=== PATIENT | male | born 1950 | race African-American/Black ===

== ENCOUNTER 2016-11-21 13:46 | Inpatient (IN) | payer BC ==
[2016-11-21 16:41] VITALS: BMI 36.2
--- NOTE | 2016-11-21 17:01 | HP ---
COWS - Scale Resting Pulse: 0= [place] 80 or Below Sweatin=Flushed/Facial Moisture Restless Observation: 1= Difficult to Sit Still Pupil Size: 2= Moderately Dilated Bone or Joint Aches: 2= Severe Diffuse Aches Runny Nose/ Eye Tearin= Runny Nose/Eyes GI Upset > 30mins: 2= Nausea/Diarrhea Tremor Observation: 2= Slight Tremor Visible Yawning Observation: 1= 1-2x During Session Anxiety or Irritability: 2=Irritable/Anxious Goose Flesh Skin: 0=Smooth Skin COWS Score: 16 Admission ROS S - [facility] Chief Complaint: Withdrawal sx. Allergies/Adverse Reactions: Allergies Allergy/AdvReac Type Severity Reaction Status Date / Time No Known Allergies Allergy Verified 11/21/16 16:17 History of Present Illness: 66 y/o man with a long hx. of heroin dependence is admitted for detox. Pt. has been in previous detox, reports 5 yrs. drug free on two different occasion. Exam Limitations: No Limitations - Ebola screening Have you traveled outside of the country in the last 21 days: No (N) Have you had contact with anyone from an Ebola affected area: No Have you been sick,other than usual withdrawal symptoms: No Do you have a fever: No - Review of Systems Constitutional: Diaphoresis EENT: reports: Nose Congestion Respiratory: reports: No Symptoms reported Cardiac: reports: No Symptoms Reported GI: reports: Nausea, Abdominal cramping : reports: No Symptoms Reported Musculoskeletal: reports: No Symptoms Reported Integumentary: reports: Sweating Neuro: reports: Tingling, Tremors, Other (one blackout in 1995) Endocrine: reports: Increased Hunger, Increased Thirst, Increased Urine Hematology: reports: No Symptoms Reported Psychiatric: reports: No Sypmtoms Reported Other Systems: Reviewed and Negative Patient History - Patient Medical History Hx Anemia: No Hx Asthma: No Hx Chronic Obstructive Pulmonary Disease (COPD): No Hx Cancer: No Hx Cardiac Disorders: No Hx Congestive Heart Failure: No Hx Hypertension: Yes (on meds) Hx Hypercholesterolemia: Yes Hx Pacemaker: No HX Cerebrovascular Accident: No Hx Seizures: No Hx Dementia: No Hx Diabetes: Yes (Type II) Hx Gastrointestinal Disorders: Yes (GERD) Hx Liver Disease: No Hx Genitourinary Disorders: No Hx Sexually Transmitted Disorders: No Hx Renal Disease (ESRD): No Hx Thyroid Disease: No Hx Human Immunodeficiency Virus (HIV): No Hx Hepatitis C: No Hx Depression: Yes Hx Suicide Attempt: No Hx Bipolar Disorder: No Hx Schizophrenia: No - Patient Surgical History Past Surgical History: Yes Hx Cholecystectomy: Yes (2004) Hx Orthopedic Surgery: Yes (multiple sx both wrist) Anesthesia Reaction: No - PPD History Previous Implant?: No Documented Results: Positive w/o proof PPD to be Administered?: No - Smoking Cessation Smoking history: Current every day smoker Have you smoked in the past 12 months: Yes Aproximately how many cigarettes per day: 4 Hx Chewing Tobacco Use: No Initiated information on smoking cessation: Yes 'Breaking Loose' booklet given: 11/21/16 - Substance & Tx. History Hx Alcohol Use: Yes (occasional) Hx Substance Use: Yes Substance Use Type: Heroin Hx Substance Use Treatment: Yes (detox,iop) - Substances Abused Heroin Route: Inhalation Frequency: Daily Amount used: 4 BAGS Age of first use: 21 Date of Last Use: 11/21/16 Family Disease History - Family Disease History Family Disease History: Diabetes: Mother (HTN), Heart Disease: Mother Admission Physical Exam [facility] - Vital Signs Vital Signs: Vital Signs - 24 hr 11/21/16 16:37 Temperature 97.0 F L Pulse Rate 73 Respiratory 20 Rate Blood Pressure 117/79 - Physical General Appearance: Yes: Irritable, Sweating, Anxious HEENTM: Yes: Nasal Congestion, Rhinorrhea Respiratory: Yes: Chest Non-Tender, Lungs Clear, Normal Breath Sounds Neck: Yes: Supple Breast: Yes: Breast Exam Deferred Cardiology: Yes: Regular Rhythm, Regular Rate, S1, S2 Abdominal: Yes: Normal Bowel Sounds, Non Tender, Soft Genitourinary: Yes: Within Normal Limits Back: Yes: Within Normal Limits Musculoskeletal: Yes: Within Normal Limits Extremities: Yes: Within Normal Limits Neurological: Yes: Fully Oriented, Alert Integumentary: Yes: Diaphoresis Lymphatic: Yes: Within Normal Limits - Diagnostic (1) Opioid dependence with withdrawal Current Visit: Yes Status: Acute (2) Type II diabetes mellitus Current Visit: Yes Status: Acute Qualifiers: Diabetes mellitus complication status: without complication Diabetes mellitus assisted insulin use: without assisted use Qualified Code(s): E11.9 - Type 2 diabetes mellitus without complications (3) HTN (hypertension) Current Visit: Yes Status: Acute Qualifiers: Hypertension type: essential hypertension Qualified Code(s): I10 - Essential (primary) hypertension (4) GERD (gastroesophageal reflux disease) Current Visit: Yes Status: Acute (5) Obesities, morbid Current Visit: Yes Status: Acute Qualifiers: Obesity type: due to excess calories Qualified Code(s): E66.01 - Morbid (severe) obesity due to excess calories Cleared for Admission S - Detox or Rehab [facility] Level of Care: Medically Managed Detox Regimen/Protocol: Methadone S Breath Alcohol Content Breath Alcohol Content: 0 Urine Drug Screen - Results Drug Screen Negative: No Urine Drug Screen Results: OPI-Opiates
[2016-11-21] MEDS ORDERED: ACETAMINOPHEN 325 MG TABLET (FP) PO PRN (17:11)
[2016-11-21] MEDS ORDERED: MENTHOL/PHENOL 1 EACH UD MM PRN (17:11)
[2016-11-21] MEDS ORDERED: IBUPROFEN 400 MG TABLET (FP) PO PRN (17:11)
[2016-11-21] MEDS ORDERED: NICOTINE POLACRILEX 2 MG GUM BC PRN (17:11)
[2016-11-21] MEDS ORDERED: MAGNESIUM CITRATE 300 ML BOTTLE PO PRN (17:11)
[2016-11-21] MEDS ORDERED: guaiFENesin/D-METHORPHAN HB 10 ML UNIT-DOSE CUPS PO PRN (17:11)
[2016-11-21] MEDS ORDERED: hydrOXYzine PAMOATE 50 MG CAPSULE (FP) PO PRN (17:11)
[2016-11-21] MEDS ORDERED: MAGNESIUM HYDROX 2400MG/30ML ORAL SUSPENSION 30 ML CUP PO PRN (17:11)
[2016-11-21] MEDS ORDERED: MAG HYDROX/AL HYDROX/SIMETH 30 ML UNIT-DOSE CUP PO PRN (17:11)
[2016-11-21] MEDS ORDERED: LOPERAMIDE HCL 2 MG CAPSULE PO PRN (17:11)
[2016-11-21] MEDS ORDERED: METHADONE HCL 10 MG TABLET (FOR DETOX USE ONLY) PO ONE ×2 (18:30→23:00)
[2016-11-21] MEDS: diazePAM 5 MG TABLET PO PRN (18:38)
[2016-11-21] MEDS: NICOTINE 7 MG/24 HOURS TOPICAL PATCH TD SCH (18:50)
[2016-11-21] MEDS ORDERED: INSULIN DETEMIR 100 UNITS/ML MDV SQ SCH (22:00)
[2016-11-21] MEDS: THIAMINE HCL 100 MG TABLET (FP) PO SCH (22:24)
[2016-11-21 23:10] LABS: URINE APPEARANCE CLEAR; URINE BILIRUBIN NEGATIVE (NEGATIVE); URINE BLOOD NEGATIVE (NEGATIVE); URINE COLOR LT. YELLOW; URINE GLUCOSE (UA) NEGATIVE (NEGATIVE); URINE KETONE NEGATIVE (NEGATIVE); URINE LEUK ESTERASE NEGATIVE (NEGATIVE); URINE NITRITE NEGATIVE (NEGATIVE); URINE PROTEIN NEGATIVE (NEGATIVE); URINE UROBILINOGEN 0.2 E.U/dl E.U./dl (0.2-1.0)
[2016-11-22] MEDS: diazePAM 5 MG TABLET PO PRN ×3 (05:55→22:22)
--- NOTE | 2016-11-22 08:58 | CONSULT ---
[facility] Psychiatric Consult - Data Date of interview: 11/22/16 Admission source: [facility] Identifying data: This is 66 years old male with psychiatric hospitalization history intoxicated with : Opioids Substance Abuse History: - Smoking Cessation. Smoking history: Current every day smoker. Have you smoked in the past 12 months: Yes. Aproximately how many cigarettes per day: 4. Hx Chewing Tobacco Use: No. Initiated information on smoking cessation: Yes. 'Breaking Loose' booklet given: 11/21/16. - Substance & Tx. History. Hx Alcohol Use: Yes (occasional). Hx Substance Use: Yes. Substance Use Type: Heroin. Hx Substance Use Treatment: Yes (detox,iop). - Substances Abused. Heroin. Route: Inhalation. Frequency: Daily. Amount used: 4 BAGS. Age of first use: 21. Date of Last Use: 11/21/16 Medical History: GERD, HTN, Obesity motbid, DM Psychiatric History: Patient reports unclear psychiatric admission on 2014 at [facility] due to depressd mood for safety, denies suicidal history, reports no psychiatric medications taking prior to admission Physical/Sexual Abuse/Trauma History: Denies Additional Comment: Observation. Detox Unit Care Protocol Mental Status Exam - Mental Status Exam Alert and Oriented to: Person Cognitive Function: Fair Patient Appearance: Well Groomed Mood: Sad Affect: Mood Congruent Patient Behavior: Cooperative Speech Pattern: Appropriate Voice Loudness: Normal Thought Process: Goal Oriented Thought Disorder: Being Controlled Hallucinations: Denies Suicidal Ideation: Denies Homicidal Ideation: Denies Insight/Judgement: Fair Sleep: Difficulty falling asleep Appetite: Weight loss Muscle strength/Tone: Mild Hypotonicity Gait/Station: Shuffling Additional Comments: Observation. Detox Unit Care Protocol Psychiatric Findings - Problem List ([place] 1, 2,3) (1) Obesities, morbid Current Visit: Yes Status: Acute Qualifiers: Obesity type: due to excess calories Qualified Code(s): E66.01 - Morbid (severe) obesity due to excess calories (2) Opioid dependence with withdrawal Current Visit: Yes Status: Acute (3) Opioid-induced mood disorder Current Visit: Yes Status: Acute (4) Opioid-induced sleep disorder, insomnia type, with onset during discontinuation/withdrawal Current Visit: Yes Status: Acute - Initial Treatment Plan Initial Treatment Plan: Observation. Detox Unit Care Protocol
[2016-11-22] MEDS ORDERED: METHADONE HCL 10 MG TABLET (FOR DETOX USE ONLY) PO ONE (10:00)
[2016-11-22 10:08] LABS: MCH 29.3 pg (25.7-33.7); MCHC 33.9 g/dl (32.0-35.9); MEAN CELL VOLUME 86.3 fl (80-96); MEAN PLT VOLUME 9.5 fl (7.5-11.1); PLATELET COUNT 210 K/MM3 (134-434); WHITE BLOOD COUNT 5.8 K/mm3 (4.0-10.0)
[2016-11-22] MEDS: METFORMIN HCL PO SCH (10:09)
[2016-11-22] MEDS: SAXAGLIPTIN HCL PO SCH (10:09)
[2016-11-22] MEDS: VALSARTAN PO SCH (10:09)
[2016-11-22] MEDS: AMLODIPINE PO SCH (10:09)
[2016-11-22] MEDS: [UNRECOGNIZED DRUG - OTHER] PO SCH (10:09)
[2016-11-22] MEDS: PRENATAL VITAMINS W/ FOLIC ACID TABLET (FP) PO SCH (10:09)
[2016-11-22] MEDS: [UNRECOGNIZED DRUG - OTHER] PO SCH (10:09)
[2016-11-22] MEDS: PATIENT'S OWN MEDICATION (NON-FORMULARY) (Omeprazole/Sodium Bicarbonate [Omeprazole-Bicarb PO SCH (10:09)
[2016-11-22] MEDS: NICOTINE 7 MG/24 HOURS TOPICAL PATCH TD SCH (10:10)
[2016-11-22 10:48] LABS: ALK PHOS 93 U/L (45-117); ANION GAP 8 (8-16); BILIRUBIN,TOTAL 0.5 mg/dL (0.2-1.0); CALCIUM 8.9 mg/dL (8.5-10.1); CO2 26 mmol/L (21-32); CREATININE 1.1 mg/dL (0.7-1.3); GLUCOSE,RANDOM 98 mg/dL (74-106); SGOT/AST 15 U/L (15-37); SGPT/ALT 22 U/L (12-78); TOT PROT 7.1 g/dl (6.4-8.2)
--- NOTE | 2016-11-22 12:01 | PN ---
BHS COWS - Scale Resting Pulse: 0= [place] 80 or Below Sweatin= Chills/Flushing Restless Observation: 3= Extraneous Movement Pupil Size: 2= Moderately Dilated Bone or Joint Aches: 4=Acute Joint/Muscle Pain Runny Nose/ Eye Tearin= Nasal Congestion GI Upset > 30mins: 1= Stomach Cramp Tremor Observation of Outstretched Hands: 1= Tremor [place], Not Seen Yawning Observation: 2= >3x During Session Anxiety or Irritability: 2=Irritable/Anxious Goose Flesh Skin: 0=Smooth Skin COWS Score: 17 BHS Progress Note (SOAP) Subjective: ANXIETY,SWEATS,BODY ACHES, INTERMITTENT SLEEP. Objective: 11/22/16 12:01 Vital Signs Temperature 98.4 F 11/22/16 09:47 Pulse Rate 67 11/22/16 09:47 Respiratory Rate 20 11/22/16 09:47 Blood Pressure 131/83 11/22/16 09:47 O2 Sat by Pulse Oximetry (%) Laboratory Last Values WBC 5.8 K/mm3 (4.0-10.0) 11/22/16 06:00 RBC 4.21 M/mm3 (4.00-5.60) 11/22/16 06:00 Hgb 12.3 GM/dL (11.7-16.9) 11/22/16 06:00 Hct 36.3 % (35.4-49) 11/22/16 06:00 MCV 86.3 fl (80-96) 11/22/16 06:00 MCHC 33.9 g/dl (32.0-35.9) 11/22/16 06:00 RDW 14.0 % (11.9-15.9) 11/22/16 06:00 Plt Count 210 K/MM3 (134-434) 11/22/16 06:00 MPV 9.5 fl (7.5-11.1) 11/22/16 06:00 Sodium 143 mmol/L (136-145) 11/22/16 06:00 Potassium 4.4 mmol/L (3.5-5.1) 11/22/16 06:00 Chloride 109 mmol/L (98-107) H 11/22/16 06:00 Carbon Dioxide 26 mmol/L (21-32) 11/22/16 06:00 Anion Gap 8 (8-16) 11/22/16 06:00 BUN 10 mg/dL (7-18) 11/22/16 06:00 Creatinine 1.1 mg/dL (0.7-1.3) 11/22/16 06:00 Creat Clearance w eGFR > 60 (>60) 11/22/16 06:00 POC Glucometer 99 UNITS (()) 11/22/16 05:37 Random Glucose 98 mg/dL (74-106) 11/22/16 06:00 Calcium 8.9 mg/dL (8.5-10.1) 11/22/16 06:00 Total Bilirubin 0.5 mg/dL (0.2-1.0) 11/22/16 06:00 AST 15 U/L (15-37) 11/22/16 06:00 ALT 22 U/L (12-78) 11/22/16 06:00 Alkaline Phosphatase 93 U/L (45-117) 11/22/16 06:00 Total Protein 7.1 g/dl (6.4-8.2) 11/22/16 06:00 Albumin 4.0 g/dl (3.4-5.0) 11/22/16 06:00 Urine Color Lt. yellow 11/21/16 22:05 Urine Appearance Clear 11/21/16 22:05 Urine pH 7.0 (5.0-8.0) 11/21/16 22:05 Ur Specific [place] 1.010 (1.001-1.035) 11/21/16 22:05 Urine Protein Negative (NEGATIVE) 11/21/16 22:05 Urine Glucose (UA) Negative (NEGATIVE) 11/21/16 22:05 Urine Ketones Negative (NEGATIVE) 11/21/16 22:05 Urine Blood Negative (NEGATIVE) 11/21/16 22:05 Urine Nitrite Negative (NEGATIVE) 11/21/16 22:05 Urine Bilirubin Negative (NEGATIVE) 11/21/16 22:05 Urine Urobilinogen 0.2 e.u/dl E.U./dl (0.2-1.0) 11/21/16 22:05 Ur Leukocyte Esterase Negative (NEGATIVE) 11/21/16 22:05 Assessment: 11/22/16 12:01 WITHDRAWAL SX Plan: CONTINUE DETOX
--- NOTE | 2016-11-22 16:19 | EKG ---
Test Reason : Blood Pressure : / mmHG Vent. Rate : 062 BPM Atrial Rate : 062 BPM P-R Int : 168 ms QRS Dur : 078 ms QT Int : 334 ms P-R-T Axes : 037 028 033 degrees QTc Int : 339 ms NORMAL SINUS RHYTHM NONSPECIFIC T WAVE ABNORMALITY ABNORMAL ECG NO PREVIOUS ECGS AVAILABLE Confirmed by SIRENA COLON, HUANG ([id number]) on 11/22/2016 4:18:51 PM Referred By: Tyson Short Confirmed By:HUANG PACK MD
[2016-11-22] MEDS: INSULIN DETEMIR 100 UNITS/ML MDV SQ SCH (17:07)
[2016-11-22] MEDS: THIAMINE HCL 100 MG TABLET (FP) PO SCH (22:22)
[2016-11-23] MEDS: diazePAM 5 MG TABLET PO PRN ×2 (05:35→22:23)
[2016-11-23] MEDS: P-EPHED 60MG/TRIPROLIDI 2.5MG TABLET PO PRN ×2 (05:36→22:23)
[2016-11-23] MEDS: [UNRECOGNIZED DRUG - OTHER] PO SCH (06:35)
[2016-11-23] MEDS: SAXAGLIPTIN HCL PO SCH (06:35)
[2016-11-23] MEDS: METFORMIN HCL PO SCH (06:35)
[2016-11-23] MEDS ORDERED: METHADONE HCL 5 MG TABLET (FOR DETOX USE ONLY) PO ONE (10:00)
[2016-11-23] MEDS: PRENATAL VITAMINS W/ FOLIC ACID TABLET (FP) PO SCH (10:14)
[2016-11-23] MEDS: NICOTINE 7 MG/24 HOURS TOPICAL PATCH TD SCH (10:15)
[2016-11-23] MEDS: PATIENT'S OWN MEDICATION (NON-FORMULARY) (Omeprazole/Sodium Bicarbonate [Omeprazole-Bicarb PO SCH (10:15)
[2016-11-23] MEDS: [UNRECOGNIZED DRUG - OTHER] PO SCH (10:16)
[2016-11-23] MEDS: AMLODIPINE PO SCH (10:16)
[2016-11-23] MEDS: VALSARTAN PO SCH (10:16)
--- NOTE | 2016-11-23 10:59 | PN ---
BHS COWS - Scale Resting Pulse: 0= [place] 80 or Below Sweatin=Flushed/Facial Moisture Restless Observation: 1= Difficult to Sit Still Pupil Size: 0= Normal to Room Light Bone or Joint Aches: 2= Severe Diffuse Aches Runny Nose/ Eye Tearin= Runny Nose/Eyes GI Upset > 30mins: 2= Nausea/Diarrhea Tremor Observation of Outstretched Hands: 2= Slight Tremor Visible Yawning Observation: 1= 1-2x During Session Anxiety or Irritability: 2=Irritable/Anxious Goose Flesh Skin: 0=Smooth Skin COWS Score: 14 S Progress Note (SOAP) Subjective: Sweating,interrupted sleep,anxiety,tremors Objective: 11/23/16 10:58 Vital Signs - 8 hr 11/23/16 11/23/16 11/23/16 03:32 06:24 09:32 Temperature 97.4 F L 98.0 F Pulse Rate 63 75 Respiratory 18 18 18 Rate Blood Pressure 137/83 134/86 Laboratory Tests 11/21/16 11/21/16 11/21/16 16:32 21:13 22:05 WBC RBC Hgb Hct MCV MCHC RDW Plt Count MPV Sodium Potassium Chloride Carbon Dioxide Anion Gap BUN Creatinine Creat Clearance w eGFR POC Glucometer 147 116 Random Glucose Calcium Total Bilirubin AST ALT Alkaline Phosphatase Total Protein Albumin Urine Color Lt. yellow Urine Appearance Clear Urine pH 7.0 Ur Specific [place] 1.010 Urine Protein Negative Urine Glucose (UA) Negative Urine Ketones Negative Urine Blood Negative Urine Nitrite Negative Urine Bilirubin Negative Urine Urobilinogen 0.2 e.u/dl Ur Leukocyte Esterase Negative RPR Titer 11/22/16 11/22/16 11/22/16 05:37 06:00 06:00 WBC 5.8 RBC 4.21 Hgb 12.3 Hct 36.3 MCV 86.3 MCHC 33.9 RDW 14.0 Plt Count 210 MPV 9.5 Sodium 143 Potassium 4.4 Chloride 109 H Carbon Dioxide 26 Anion Gap 8 BUN 10 Creatinine 1.1 Creat Clearance w eGFR > 60 POC Glucometer 99 Random Glucose 98 Calcium 8.9 Total Bilirubin 0.5 AST 15 ALT 22 Alkaline Phosphatase 93 Total Protein 7.1 Albumin 4.0 Urine Color Urine Appearance Urine pH Ur Specific [place] Urine Protein Urine Glucose (UA) Urine Ketones Urine Blood Urine Nitrite Urine Bilirubin Urine Urobilinogen Ur Leukocyte Esterase RPR Titer 11/22/16 11/22/16 11/23/16 06:00 16:13 05:37 WBC RBC Hgb Hct MCV MCHC RDW Plt Count MPV Sodium Potassium Chloride Carbon Dioxide Anion Gap BUN Creatinine Creat Clearance w eGFR POC Glucometer 98 100 Random Glucose Calcium Total Bilirubin AST ALT Alkaline Phosphatase Total Protein Albumin Urine Color Urine Appearance Urine pH Ur Specific [place] Urine Protein Urine Glucose (UA) Urine Ketones Urine Blood Urine Nitrite Urine Bilirubin Urine Urobilinogen Ur Leukocyte Esterase RPR Titer Nonreactive labs noted Assessment: 11/23/16 10:58 withdrawal sx. Plan: Continue detox
[2016-11-23] MEDS ORDERED: INSULIN DETEMIR 100 UNITS/ML MDV SQ ONE (16:42)
[2016-11-23] MEDS: INSULIN DETEMIR 100 UNITS/ML MDV SQ SCH (16:47)
[2016-11-23] MEDS: THIAMINE HCL 100 MG TABLET (FP) PO SCH (22:24)
[2016-11-24] MEDS: diazePAM 5 MG TABLET PO PRN ×2 (05:08→10:27)
[2016-11-24] MEDS: [UNRECOGNIZED DRUG - OTHER] PO SCH (06:18)
[2016-11-24] MEDS: SAXAGLIPTIN HCL PO SCH (06:18)
[2016-11-24] MEDS: METFORMIN HCL PO SCH (06:18)
[2016-11-24] MEDS ORDERED: METHADONE HCL 5 MG TABLET (FOR DETOX USE ONLY) PO ONE (10:00)
[2016-11-24] MEDS: [UNRECOGNIZED DRUG - OTHER] PO SCH (10:23)
[2016-11-24] MEDS: VALSARTAN PO SCH (10:23)
[2016-11-24] MEDS: AMLODIPINE PO SCH (10:23)
[2016-11-24] MEDS: PATIENT'S OWN MEDICATION (NON-FORMULARY) (Omeprazole/Sodium Bicarbonate [Omeprazole-Bicarb PO SCH (10:24)
[2016-11-24] MEDS: NICOTINE 7 MG/24 HOURS TOPICAL PATCH TD SCH (10:25)
[2016-11-24] MEDS: PRENATAL VITAMINS W/ FOLIC ACID TABLET (FP) PO SCH (10:25)
--- NOTE | 2016-11-24 14:28 | PN ---
BHS Progress Note (SOAP) Subjective: Sweating, Body aches, Interrupted sleep, Back Ache. Objective: PT. A & O X 3, OBSERVED AMBULATING ON UNIT. 11/24/16 14:26 Vital Signs Temperature 96.4 F L 11/24/16 14:20 Pulse Rate 65 11/24/16 14:20 Respiratory Rate 20 11/24/16 14:20 Blood Pressure 124/87 11/24/16 14:20 O2 Sat by Pulse Oximetry (%) Laboratory Last Values WBC 5.8 K/mm3 (4.0-10.0) 11/22/16 06:00 RBC 4.21 M/mm3 (4.00-5.60) 11/22/16 06:00 Hgb 12.3 GM/dL (11.7-16.9) 11/22/16 06:00 Hct 36.3 % (35.4-49) 11/22/16 06:00 MCV 86.3 fl (80-96) 11/22/16 06:00 MCHC 33.9 g/dl (32.0-35.9) 11/22/16 06:00 RDW 14.0 % (11.9-15.9) 11/22/16 06:00 Plt Count 210 K/MM3 (134-434) 11/22/16 06:00 MPV 9.5 fl (7.5-11.1) 11/22/16 06:00 Sodium 143 mmol/L (136-145) 11/22/16 06:00 Potassium 4.4 mmol/L (3.5-5.1) 11/22/16 06:00 Chloride 109 mmol/L (98-107) H 11/22/16 06:00 Carbon Dioxide 26 mmol/L (21-32) 11/22/16 06:00 Anion Gap 8 (8-16) 11/22/16 06:00 BUN 10 mg/dL (7-18) 11/22/16 06:00 Creatinine 1.1 mg/dL (0.7-1.3) 11/22/16 06:00 Creat Clearance w eGFR > 60 (>60) 11/22/16 06:00 POC Glucometer 115 UNITS (()) 11/24/16 05:07 Random Glucose 98 mg/dL (74-106) 11/22/16 06:00 Calcium 8.9 mg/dL (8.5-10.1) 11/22/16 06:00 Total Bilirubin 0.5 mg/dL (0.2-1.0) 11/22/16 06:00 AST 15 U/L (15-37) 11/22/16 06:00 ALT 22 U/L (12-78) 11/22/16 06:00 Alkaline Phosphatase 93 U/L (45-117) 11/22/16 06:00 Total Protein 7.1 g/dl (6.4-8.2) 11/22/16 06:00 Albumin 4.0 g/dl (3.4-5.0) 11/22/16 06:00 Urine Color Lt. yellow 11/21/16 22:05 Urine Appearance Clear 11/21/16 22:05 Urine pH 7.0 (5.0-8.0) 11/21/16 22:05 Ur Specific [place] 1.010 (1.001-1.035) 11/21/16 22:05 Urine Protein Negative (NEGATIVE) 11/21/16 22:05 Urine Glucose (UA) Negative (NEGATIVE) 11/21/16 22:05 Urine Ketones Negative (NEGATIVE) 11/21/16 22:05 Urine Blood Negative (NEGATIVE) 11/21/16 22:05 Urine Nitrite Negative (NEGATIVE) 11/21/16 22:05 Urine Bilirubin Negative (NEGATIVE) 11/21/16 22:05 Urine Urobilinogen 0.2 e.u/dl E.U./dl (0.2-1.0) 11/21/16 22:05 Ur Leukocyte Esterase Negative (NEGATIVE) 11/21/16 22:05 RPR Titer Nonreactive (NONREACTIVE) 11/22/16 06:00 LABS NOTED. Assessment: 11/24/16 14:27 WITHDRAWAL SYMPTOMS. Plan: CONTINUE DETOX. ADVISED PATIENT TO FOLLOW-UP WITH [facility] / REHAB MEDICAL PROVIDER AFTER DISCHARGE FROM DETOX FOR GENERAL MEDICAL ASSESSMENT.
[2016-11-24] MEDS: INSULIN DETEMIR 100 UNITS/ML MDV SQ SCH (17:12)
[2016-11-24] MEDS: THIAMINE HCL 100 MG TABLET (FP) PO SCH (22:33)
[2016-11-24] MEDS: diphenhydrAMINE HCL 50 MG CAPSULE PO PRN (22:33)
[2016-11-25] MEDS: METFORMIN HCL PO SCH (06:21)
[2016-11-25] MEDS: SAXAGLIPTIN HCL PO SCH (06:21)
[2016-11-25] MEDS: [UNRECOGNIZED DRUG - OTHER] PO SCH (06:21)
--- NOTE | 2016-11-25 08:52 | PN ---
BHS Progress Note (SOAP) Subjective: Sweating,interrupted sleep,restless Objective: 11/25/16 08:51 Vital Signs - 8 hr 11/25/16 06:19 Temperature 97.1 F L Pulse Rate 66 Respiratory 16 Rate Blood Pressure 116/83 Laboratory Last Values WBC 5.8 K/mm3 (4.0-10.0) 11/22/16 06:00 RBC 4.21 M/mm3 (4.00-5.60) 11/22/16 06:00 Hgb 12.3 GM/dL (11.7-16.9) 11/22/16 06:00 Hct 36.3 % (35.4-49) 11/22/16 06:00 MCV 86.3 fl (80-96) 11/22/16 06:00 MCHC 33.9 g/dl (32.0-35.9) 11/22/16 06:00 RDW 14.0 % (11.9-15.9) 11/22/16 06:00 Plt Count 210 K/MM3 (134-434) 11/22/16 06:00 MPV 9.5 fl (7.5-11.1) 11/22/16 06:00 Sodium 143 mmol/L (136-145) 11/22/16 06:00 Potassium 4.4 mmol/L (3.5-5.1) 11/22/16 06:00 Chloride 109 mmol/L (98-107) H 11/22/16 06:00 Carbon Dioxide 26 mmol/L (21-32) 11/22/16 06:00 Anion Gap 8 (8-16) 11/22/16 06:00 BUN 10 mg/dL (7-18) 11/22/16 06:00 Creatinine 1.1 mg/dL (0.7-1.3) 11/22/16 06:00 Creat Clearance w eGFR > 60 (>60) 11/22/16 06:00 POC Glucometer 92 UNITS (()) 11/25/16 05:12 Random Glucose 98 mg/dL (74-106) 11/22/16 06:00 Calcium 8.9 mg/dL (8.5-10.1) 11/22/16 06:00 Total Bilirubin 0.5 mg/dL (0.2-1.0) 11/22/16 06:00 AST 15 U/L (15-37) 11/22/16 06:00 ALT 22 U/L (12-78) 11/22/16 06:00 Alkaline Phosphatase 93 U/L (45-117) 11/22/16 06:00 Total Protein 7.1 g/dl (6.4-8.2) 11/22/16 06:00 Albumin 4.0 g/dl (3.4-5.0) 11/22/16 06:00 Urine Color Lt. yellow 11/21/16 22:05 Urine Appearance Clear 11/21/16 22:05 Urine pH 7.0 (5.0-8.0) 11/21/16 22:05 Ur Specific [place] 1.010 (1.001-1.035) 11/21/16 22:05 Urine Protein Negative (NEGATIVE) 11/21/16 22:05 Urine Glucose (UA) Negative (NEGATIVE) 11/21/16 22:05 Urine Ketones Negative (NEGATIVE) 11/21/16 22:05 Urine Blood Negative (NEGATIVE) 11/21/16 22:05 Urine Nitrite Negative (NEGATIVE) 11/21/16 22:05 Urine Bilirubin Negative (NEGATIVE) 11/21/16 22:05 Urine Urobilinogen 0.2 e.u/dl E.U./dl (0.2-1.0) 11/21/16 22:05 Ur Leukocyte Esterase Negative (NEGATIVE) 11/21/16 22:05 RPR Titer Nonreactive (NONREACTIVE) 11/22/16 06:00 labs noted Assessment: 11/25/16 08:52 withdrawal sx. Plan: continue detox
[2016-11-25] MEDS ORDERED: METHADONE HCL 10 MG TABLET (FOR DETOX USE ONLY) PO ONE (10:00)
[2016-11-25] MEDS: PRENATAL VITAMINS W/ FOLIC ACID TABLET (FP) PO SCH (10:31)
[2016-11-25] MEDS: VALSARTAN PO SCH (10:32)
[2016-11-25] MEDS: [UNRECOGNIZED DRUG - OTHER] PO SCH (10:32)
[2016-11-25] MEDS: AMLODIPINE PO SCH (10:32)
[2016-11-25] MEDS: PATIENT'S OWN MEDICATION (NON-FORMULARY) (Omeprazole/Sodium Bicarbonate [Omeprazole-Bicarb PO SCH (10:32)
[2016-11-25] MEDS: P-EPHED 60MG/TRIPROLIDI 2.5MG TABLET PO PRN (10:34)
[2016-11-25] MEDS: NICOTINE 7 MG/24 HOURS TOPICAL PATCH TD SCH (11:54)
[2016-11-25] MEDS: INSULIN DETEMIR 100 UNITS/ML MDV SQ SCH (17:20)
[2016-11-25] MEDS: THIAMINE HCL 100 MG TABLET (FP) PO SCH (22:23)
[2016-11-25] MEDS: diphenhydrAMINE HCL 50 MG CAPSULE PO PRN (22:24)
[2016-11-26] MEDS ORDERED: METHADONE HCL 5 MG TABLET (FOR DETOX USE ONLY) PO ONE (06:00)
[2016-11-26] MEDS: SAXAGLIPTIN HCL PO SCH (06:46)
[2016-11-26] MEDS: [UNRECOGNIZED DRUG - OTHER] PO SCH (06:46)
[2016-11-26] MEDS: METFORMIN HCL PO SCH (06:46)
[2016-11-26] MEDS: PATIENT'S OWN MEDICATION (NON-FORMULARY) (Omeprazole/Sodium Bicarbonate [Omeprazole-Bicarb PO SCH (09:28)
[2016-11-26] MEDS: AMLODIPINE PO SCH (09:28)
[2016-11-26] MEDS: VALSARTAN PO SCH (09:28)
[2016-11-26] MEDS: [UNRECOGNIZED DRUG - OTHER] PO SCH (09:28)
[2016-11-26] MEDS: NICOTINE 7 MG/24 HOURS TOPICAL PATCH TD SCH (09:30)
[2016-11-26 10:05] VITALS: BP 117/83; PULSE 73; TEMP 97.3
--- NOTE | 2016-11-26 14:24 | DS ---
[facility] Detox Discharge Summary Admission Date: 11/21/16 Discharge Date: 11/26/16 - History Present History: Opioid Dependence Additional Comments: ADVISED PATIENT TO FOLLOW-UP WITH [facility] / REHAB MEDICAL PROVIDER AFTER DISCHARGE FROM DETOX FOR GENERAL MEDICAL ASSESSMENT. Pertinent Past History: GERD, HTN, Type II DM. - Physical Exam Results Vital Signs: Vital Signs Temperature 97.3 F L 11/26/16 10:04 Pulse Rate 73 11/26/16 10:04 Respiratory Rate 18 11/26/16 10:04 Blood Pressure 117/83 11/26/16 10:04 O2 Sat by Pulse Oximetry (%) Pertinent Admission Physical Exam Findings: WITHDRAWAL SYMPTOMS. Laboratory Last Values WBC 5.8 K/mm3 (4.0-10.0) 11/22/16 06:00 RBC 4.21 M/mm3 (4.00-5.60) 11/22/16 06:00 Hgb 12.3 GM/dL (11.7-16.9) 11/22/16 06:00 Hct 36.3 % (35.4-49) 11/22/16 06:00 MCV 86.3 fl (80-96) 11/22/16 06:00 MCHC 33.9 g/dl (32.0-35.9) 11/22/16 06:00 RDW 14.0 % (11.9-15.9) 11/22/16 06:00 Plt Count 210 K/MM3 (134-434) 11/22/16 06:00 MPV 9.5 fl (7.5-11.1) 11/22/16 06:00 Sodium 143 mmol/L (136-145) 11/22/16 06:00 Potassium 4.4 mmol/L (3.5-5.1) 11/22/16 06:00 Chloride 109 mmol/L (98-107) H 11/22/16 06:00 Carbon Dioxide 26 mmol/L (21-32) 11/22/16 06:00 Anion Gap 8 (8-16) 11/22/16 06:00 BUN 10 mg/dL (7-18) 11/22/16 06:00 Creatinine 1.1 mg/dL (0.7-1.3) 11/22/16 06:00 Creat Clearance w eGFR > 60 (>60) 11/22/16 06:00 POC Glucometer 122 UNITS (()) 11/26/16 05:02 Random Glucose 98 mg/dL (74-106) 11/22/16 06:00 Calcium 8.9 mg/dL (8.5-10.1) 11/22/16 06:00 Total Bilirubin 0.5 mg/dL (0.2-1.0) 11/22/16 06:00 AST 15 U/L (15-37) 11/22/16 06:00 ALT 22 U/L (12-78) 11/22/16 06:00 Alkaline Phosphatase 93 U/L (45-117) 11/22/16 06:00 Total Protein 7.1 g/dl (6.4-8.2) 11/22/16 06:00 Albumin 4.0 g/dl (3.4-5.0) 11/22/16 06:00 Urine Color Lt. yellow 11/21/16 22:05 Urine Appearance Clear 11/21/16 22:05 Urine pH 7.0 (5.0-8.0) 11/21/16 22:05 Ur Specific [place] 1.010 (1.001-1.035) 11/21/16 22:05 Urine Protein Negative (NEGATIVE) 11/21/16 22:05 Urine Glucose (UA) Negative (NEGATIVE) 11/21/16 22:05 Urine Ketones Negative (NEGATIVE) 11/21/16 22:05 Urine Blood Negative (NEGATIVE) 11/21/16 22:05 Urine Nitrite Negative (NEGATIVE) 11/21/16 22:05 Urine Bilirubin Negative (NEGATIVE) 11/21/16 22:05 Urine Urobilinogen 0.2 e.u/dl E.U./dl (0.2-1.0) 11/21/16 22:05 Ur Leukocyte Esterase Negative (NEGATIVE) 11/21/16 22:05 RPR Titer Nonreactive (NONREACTIVE) 11/22/16 06:00 LABS NOTED. - Treatment Hospital Course: Detox Protocol Followed, Detoxed Safely, Responded well, Discharged Condition Good - Medication Discharge Medications: Ambulatory Orders Amlodipine/Valsartan [Amlodipine-Valsartan 10-160 mg] 1 each PO DAILY 11/21/16 Insulin Glargine,Hum.rec.anlog [Lantus Solostar PEN (NF)] 25 units SQ DAILY MDD @4PM 11/21/16 Omeprazole/Sodium Bicarbonate [Omeprazole-Bicarb 40-1,100 Cap] 1 each PO DAILY 11/21/16 Saxagliptin HCl/Metformin HCl [Kombiglyze Xr 2.5-1,000 mg Tab] 1 tab PO DAILY - Diagnosis (1) GERD (gastroesophageal reflux disease) Status: Chronic Qualifiers: Esophagitis presence: without esophagitis Qualified Code(s): K21.9 - Gastro-esophageal reflux disease without esophagitis (2) HTN (hypertension) Status: Chronic Qualifiers: Hypertension type: essential hypertension Qualified Code(s): I10 - Essential (primary) hypertension (3) Opioid dependence with withdrawal Status: Acute (4) Type II diabetes mellitus Status: Chronic Qualifiers: Diabetes mellitus complication status: without complication Diabetes mellitus snf insulin use: with horticultural specialty grower inside use Qualified Code(s): E11.9 - Type 2 diabetes mellitus without complications (5) Opioid-induced mood disorder Status: Acute (6) Opioid-induced sleep disorder, insomnia type, with onset during discontinuation/withdrawal Status: Acute - AMA Did Patient Leave Against Medical Advice: No
== END 2016-11-26 09:34 | disposition home or self-care (01) | DRG 897 ==
LOC: YASAS 13:46 → Y3N 18:01
PROVIDERS: ADMIT Internal Medicine; ATTEND Internal Medicine
PROC: HZ2ZZZZ Detoxification Services for Substance Abuse Treatment (ICD-10-PCS; principal; 2016-11-21)
DX: F11.23 Opioid dependence with withdrawal (principal); F11.282 Opioid dependence with opioid-induced sleep disorder; F11.24 Opioid dependence with opioid-induced mood disorder; F17.210 Nicotine dependence, cigarettes, uncomplicated; E11.9 Type 2 diabetes mellitus without complications; E78.00 Pure hypercholesterolemia, unspecified; I10 Essential (primary) hypertension; E66.01 Morbid (severe) obesity due to excess calories; Z68.36 Body mass index [BMI] 36.0-36.9, adult; Z79.4 Long term (current) use of insulin
CPT/HCPCS: 36415; 71020-TC; 80053; 81003; 85027; 86593; 93005; 93010